=== PATIENT | female | born 2000 | race Caucasian/White ===

== ENCOUNTER 2024-12-28 14:09 | Emergency (ER) | payer MEDICAID, OTHER ==
[~2024-12-28] VITALS: Ht 167.6 cm; Wt 61.2 kg
[2024-12-28 15:06] VITALS: BP 112/60; TEMP 98.2; O2SAT 97
== END 2024-12-28 15:08 | disposition home or self-care (01) ==
LOC: ER 14:14
DX: S09.8XXA Other specified injuries of head, initial encounter (principal); W19.XXXA Unspecified fall, initial encounter; Y93.42 Activity, yoga; Y92.89 Other specified places as the place of occurrence of the external cause; Y99.8 Other external cause status